=== PATIENT | female | born 1960 | race African-American/Black ===

== ENCOUNTER 2016-11-15 07:20 | Emergency (ER) | payer OTHER ==
[~2016-11-15] VITALS: Ht 162.6 cm; Wt 97.0 kg
[~2016-11-15 07:20] MED LIST: ALBU6.7H INH; BIOT1SUB SL; CLIN1CAP5 PO; FLUT1SPR9 EACH NARE; METF500T PO; METO25TA3 PO
[2016-11-15 07:22] VITALS: BP 192/91; PULSE 78; RESP 15; TEMP 98.1; O2SAT 99
[2016-11-15 07:29] VITALS: BP 151/65; PULSE 78
--- NOTE | 2016-11-15 08:02 | PD ---
HPI Chief Complaint: Pain: Acute or Chronic Time Seen by Provider: 08:02 Travel History International Travel<30 days: No Contact w/Intl Traveler<30days: No Traveled to known affect area: No History of Present Illness HPI 56-year-old female presents to the emergency Department with complaint of left knee pain times one week. Slipped and fell this morning with worsening of left knee pain. Did not fall on her knee. Fell on her butt. Denies hitting her head or loss of consciousness. Denies anticoagulants. History of left knee pain 3 months and is followed up with Dr. Cochran with x-rays that showed "bone- on-bone." She's been recommended to have a total knee replacement by Dr. Cochran. Took Tylenol prior to arrival to the ER. Pain is worse with palpation and ambulation. Pain decreased while at rest. Denies fever, chills, nausea, vomiting. Allergies SIDNEY inhibitor, Cipro, Demerol, lisinopril, NSAIDs. Has a primary care provider. No other modifying factors or associated signs and symptoms. PFSH Past Medical History Arthritis: Yes Asthma: Yes Blood Disorders: No Heart Rhythm Problems: No Cancer: No Cardiovascular Problems: Yes (HYPERTENSION) High Cholesterol: No Chest Pain: Yes Congestive Heart Failure: No COPD: No Cerebrovascular Accident: No Diabetes: Yes Diminished Hearing: No Endocrine: No Gastrointestinal Disorders: Yes GERD: Yes Glaucoma: No Genitourinary: No Headaches: Yes Hepatitis: No Hiatal Hernia: No Hypertension: Yes Immune Disorder: No Kidney Stones: No Musculoskeletal: Yes (CARPAL TUNNEL REPAIR ON RIGHT WRIST 1 YEAR AGO) Neurologic: No Psychiatric: No Reproductive: No Respiratory: Yes (asthma) Migraines: Yes Myocardial Infarction: No Pneumonia: Yes Renal Failure: No Seizures: No Sleep Apnea: Yes (uses c-pap) Thyroid Disease: No Ulcer: No ?: Not : 3 Para: 2 Miscarriage: 1 Past Surgical History Abdominal Surgery: Yes (BARIATRIC, HERNIA REPAIR) AICD: No Cardiac Surgery: Yes (ablation) Section: Yes (X 2) Ear Surgery: No Endocrine Surgery: No Eye Surgery: No Genitourinary Surgery: No Gynecologic Surgery: Yes (hysterectomy total 2004, C SECTION X 2) Hysterectomy: Yes Oral Surgery: No Pacemaker: No Thoracic Surgery: No Other Surgery: Yes (CARPAL TUNNEL) Social History Alcohol Use: No Tobacco Use: No Substance Use: No Allergies-Medications (Allergen,Severity, Reaction): Coded Allergies: SIDNEY Inhibitors (Verified Allergy, Severe, COUGHING, 11/15/16) Cipro (Verified Allergy, Severe, Swelling, 11/15/16) Demerol (Verified Allergy, Severe, 11/15/16) Lisinopril (Verified Allergy, Severe, COUGHING, 11/15/16) Nonsteroidal Anti-Inflammatory Agts (Verified Allergy, Severe, 11/15/16) Reported Meds & Prescriptions Reported Meds & Active Scripts Active Reported Metformin (Metformin HCl) 500 Mg Tab 500 Mg PO DAILY With a meal Flonase Allergy Relief Children Nasal [place] (Fluticasone Nasal [place]) 50 Mcg/ Act [place] 2 [place] EACH NARE DAILY 50 mcg/spray Metoprolol Tartrate 25 Mg Tab 25 Mg PO BID Biotin 5,000 Mcg Subl 1,000 Mcg SL Proventil Hfa 6.7 GM Inh (Albuterol Sulfate) 90 Mcg/Act Aer 2 Puff INH Q4-6H PRN Review of Systems Except as stated in HPI: all other systems reviewed are Neg Physical Exam Narrative GENERAL: Well-nourished, well-developed female patient, in no acute distress SKIN: Warm and dry. HEAD: Atraumatic. Normocephalic. EYES: Pupils equal and round. No scleral icterus. No injection or drainage. ENT: Mucosa pink and moist. Airway patent. NECK: Trachea midline. CARDIOVASCULAR: Regular rate. RESPIRATORY: No accessory muscle use. GASTROINTESTINAL: Rounded. MUSCULOSKELETAL: Left knee is nonedematous and nonerythematous; with full range of motion with flexion to 90; joint stable with negative drawer test; no obvious deformity; point tenderness on palpation to the lateral and medial aspects. Left lower extremity supple and non-tense with 2+ radial pulse and sensory intact and without erythema or edema. No cyanosis. No obvious deformities. No edema. NEUROLOGICAL: Awake and alert. Oriented 3. No obvious cranial nerve deficits. Motor grossly within normal limits. Normal speech. PSYCHIATRIC: Appropriate mood and affect; insight and judgment normal. Data Data Last Documented VS Vital Signs Date Time Temp Pulse Resp B/P Pulse Ox O2 Delivery O2 Flow Rate FiO2 11/15/16 07:29 78 151/65 11/15/16 07:22 98.1 15 99 Orders Crutches (11/15/16 08:02) Splint Or Brace Apply/Monitor (11/15/16 08:02) [facility] Medical Decision Making Medical Screen Exam Complete: Yes Emergency Medical Condition: Yes Medical Record Reviewed: Yes Differential Diagnosis Knee sprain, chronic knee pain, arthritis Narrative Course 56-year-old female with chronic left knee pain with exacerbation times one week and increased pain after a mechanical slip and fall this morning. She denies hitting her head or loss of consciousness. Denies anticoagulants. Sees Dr. Cochran, orthopedic. I do not suspect fracture or dislocation until imaging is necessary at this time. Patient took Tylenol prior to arrival. Allergies to NSAIDs. Sidney bandage and crutches provided for support. Instructed patient to take Tylenol instructed numbness needed for pain. Instructed patient to follow up with Dr. Cochran. Patient is medically cleared and stable for discharge. Discussed reasons to return to the emergency department. Instructed patient to follow up with primary care provider. Patient agrees with treatment plan. The patients vital signs are stable and the patient is stable for outpatient follow- up and treatment. Patient discharged home, stable and in no acute distress. Diagnosis Primary Impression: Left knee pain Qualified Code: M25.562 - Left knee pain, unspecified chronicity Referrals: Orthopaedic Surgeon Primary Care Physician Patient Instructions: General Instructions, Knee Pain (ED) Departure Forms: Tests/Procedures, Work Release Enter return to work date: Nov 19, 2016 Additional Instructions: Tylenol as needed and as directed to reduce pain and inflammation Rest, ice, compress, and elevate extremity to decrease pain and inflammation Knee Brace for support Crutches for support Avoid aggravating activity; increase activity as tolerated Follow-up with primary care provider Return to the emergency department immediately with worsening symptoms Med/Other Pt SpecificInfo: Prescription(s) given Disposition: 01 DISCHARGE HOME Condition: Stable Ramonita Torres Nov 15, 2016 08:02
[2016-11-16] MEDS ORDERED: TRAM50TA PO (09:05)
[2016-11-16] MEDS ORDERED: ZOFR4TAB3 SL (09:33)
== END 2016-11-15 08:34 | disposition home or self-care (01) ==
LOC: NEPB 07:20
DX: M25.562 Pain in left knee (principal); I10 Essential (primary) hypertension; J45.909 Unspecified asthma, uncomplicated; E11.9 Type 2 diabetes mellitus without complications; Z79.4 Long term (current) use of insulin; W01.0XXA Fall on same level from slipping, tripping and stumbling without subsequent striking against object, initial encounter; Y93.89 Activity, other specified; Y99.9 Unspecified external cause status
CPT/HCPCS: 99283; E0113

== ENCOUNTER 2016-11-16 08:52 | Emergency (ER) | payer OTHER ==
[~2016-11-16] VITALS: Ht 165.1 cm; Wt 95.0 kg
[~2016-11-16 08:52] MED LIST changes: -CLIN1CAP5 PO
[2016-11-16 08:57] VITALS: BP 133/108; PULSE 65; RESP 18; TEMP 98.7; O2SAT 98
--- NOTE | 2016-11-16 09:00 | PD ---
HPI . Nausea and vomiting 3 episodes this morning Chief Complaint: GI Complaint Time Seen by Provider: 08:53 Travel History International Travel<30 days: No Contact w/Intl Traveler<30days: No Traveled to known affect area: No History of Present Illness HPI 56-year-old female with history of hypertension, diabetes, bariatric surgery 2008, osteoarthritis, hysterectomy, hernia repair and chronic left knee pain here with complaints of nausea and vomiting 3 episodes this morning. Patient decided to call fire rescue and was given 4 mg of Zofran in route. She is now here in the emergency department and has no specific complaints. She tells me her nausea has subsided. She denies any abdominal pain. She says the only time she is experiencing abdominal pain is when she is actually vomiting and feels the retching in her abdomen. She denies any fever or chills. She denies any chest pain, shortness of breath or other associated symptoms. She was seen in the emergency department yesterday for left knee pain, which she is following with orthopedics tomorrow for arthrocentesis. She did take tramadol yesterday for the first time. PFSH Past Medical History Arthritis: Yes Asthma: Yes Blood Disorders: No Heart Rhythm Problems: No Cancer: No Cardiovascular Problems: Yes (HYPERTENSION) High Cholesterol: No Chest Pain: Yes Congestive Heart Failure: No COPD: No Cerebrovascular Accident: No Diabetes: Yes Diminished Hearing: No Endocrine: No Gastrointestinal Disorders: Yes GERD: Yes Glaucoma: No Genitourinary: No Headaches: Yes Hepatitis: No Hiatal Hernia: No Hypertension: Yes Immune Disorder: No Kidney Stones: No Musculoskeletal: Yes (CARPAL TUNNEL REPAIR ON RIGHT WRIST 1 YEAR AGO) Neurologic: No Psychiatric: No Reproductive: No Respiratory: Yes (asthma) Migraines: Yes Myocardial Infarction: No Pneumonia: Yes Renal Failure: No Seizures: No Sleep Apnea: Yes (uses c-pap) Thyroid Disease: No Ulcer: No : 3 Para: 2 Miscarriage: 1 Past Surgical History Abdominal Surgery: Yes (BARIATRIC, HERNIA REPAIR) AICD: No Cardiac Surgery: Yes (ablation) Section: Yes (X 2) Ear Surgery: No Endocrine Surgery: No Eye Surgery: No Genitourinary Surgery: No Gynecologic Surgery: Yes (hysterectomy total 2003, C SECTION X 2) Hysterectomy: Yes Oral Surgery: No Pacemaker: No Thoracic Surgery: No Other Surgery: Yes (CARPAL TUNNEL) Social History Alcohol Use: No Tobacco Use: No Substance Use: No Allergies-Medications (Allergen,Severity, Reaction): Coded Allergies: WALKER Inhibitors (Verified Allergy, Severe, COUGHING, 11/16/16) Cipro (Verified Allergy, Severe, Swelling, 11/16/16) Demerol (Verified Allergy, Severe, 11/16/16) Lisinopril (Verified Allergy, Severe, COUGHING, 11/16/16) Nonsteroidal Anti-Inflammatory Agts (Verified Allergy, Severe, Swelling, ) Reported Meds & Prescriptions Reported Meds & Active Scripts Active Zofran Odt (Ondansetron Odt) 4 Mg Tab 4 Mg SL Q12HR PRN Reported Tramadol (Tramadol HCl) 50 Mg Tab 50 Mg PO BID PRN Metformin (Metformin HCl) 500 Mg Tab 500 Mg PO DAILY With a meal Flonase Allergy Relief Children Nasal [place] (Fluticasone Nasal [place]) 50 Mcg/ Act [place] 2 [place] EACH NARE DAILY 50 mcg/spray Metoprolol Tartrate 25 Mg Tab 25 Mg PO BID Biotin 5,000 Mcg Subl 1,000 Mcg SL Proventil Hfa 6.7 GM Inh (Albuterol Sulfate) 90 Mcg/Act Aer 2 Puff INH Q4-6H PRN Review of Systems General / Constitutional: No: Fever Eyes: No: Visual changes HENT: No: Headaches Cardiovascular: No: Chest Pain or Discomfort Respiratory: No: Shortness of Breath Gastrointestinal: Positive: Nausea, Vomiting, No: Abdominal Pain Genitourinary: No: Dysuria Musculoskeletal: No: Pain Skin: No Rash Neurologic: No: Weakness Psychiatric: No: Depression Endocrine: No: Polydipsia Hematologic/Lymphatic: No: Easy Bruising Physical Exam Narrative GENERAL: AAO x 3, no acute distress, Well-nourished, well-developed patient. Resting comfortably in bed SKIN: Warm and dry. No visible rashes or bruising. HEAD: Normocephalic and atraumatic. EYES: No scleral icterus. No injection or drainage. ENT: No nasal drainage noted. Mucous membranes pink. Airway patent. NECK: Supple, trachea midline. No JVD. CARDIOVASCULAR: Regular rate and rhythm without murmurs, gallops, or rubs. RESPIRATORY: Breath sounds equal bilaterally. No accessory muscle use. No rhonchi or rales. GASTROINTESTINAL: Abdomen soft, non-tender, nondistended. EXTREMITIES: No cyanosis. Left knee with some edema BACK: Nontender without obvious deformity. No CVA tenderness. PSYCH: AAO x 3, normal affect. Data Data Last Documented VS Vital Signs Date Time Temp Pulse Resp B/P Pulse Ox O2 Delivery O2 Flow Rate FiO2 11/16/16 09:05 16 11/16/16 08:57 98.7 65 133/108 98 Orders Influenzae A/B Antigen (11/16/16 09:02) [facility] Medical Decision Making Medical Screen Exam Complete: Yes Emergency Medical Condition: Yes Medical Record Reviewed: Yes Differential Diagnosis viral gastroenteritis, reaction to tramadol, less likely appendicitis Narrative Course 56-year-old female with history of hypertension, diabetes, bariatric surgery 2009, osteoarthritis, hysterectomy, hernia repair and chronic left knee pain here with complaints of nausea and vomiting 3 episodes this morning. Patient decided to call fire rescue and was given 4 mg of Zofran in route. She is now here in the emergency department and has no specific complaints. She tells me her nausea has subsided. She denies any abdominal pain. She says the only time she is experiencing abdominal pain is when she is actually vomiting and feels the retching in her abdomen. She denies any fever or chills. She denies any chest pain, shortness of breath or other associated symptoms. She was seen in the emergency department yesterday for left knee pain, which she is following with orthopedics tomorrow for arthrocentesis. She did take tramadol yesterday for the first time. Patient seen and examined. Case discussed with Dr. Mendez. Recommend influenza swab, although this is unlikely. Most likely patient had nausea and vomiting due to taking tramadol. Influenza is negative, she will be discharged home. Discussed negative influenza with patient. Patient verbalized understanding of instructions, questions were answered, and thanked me for their care. I advised them if their condition worsens, please return to the nearest emergency room for further care. Diagnosis Primary Impression: Drug side effects Qualified Code: T88.7XXA - Drug side effects, initial encounter Additional Impression: Gastroenteritis Patient Instructions: General Instructions Additional Instructions: Please return to emergency department if your symptoms return or worsen. Follow up with your primary care provider. Take medications as prescribed. More than likely the tramadol may have caused his nausea and vomiting. This is one of the side effects associated with this drug. We have provided you with Zofran as needed for nausea. Your blood pressure was slightly elevated. Please have that followed up with your primary care provider. Med/Other Pt SpecificInfo: Prescription(s) given Scripts Ondansetron Odt (Zofran Odt)4 Mg Tab4 Mg SL Q12HR PRN (Nausea/Vomiting) #20 TAB Ref 0 Prov:Rivera Mendez MD 11/16/16 Disposition: 01 DISCHARGE HOME Condition: Stable Angella Sheridan Nov 16, 2016 09:00
[2016-11-16] MEDS ORDERED: TRAM50TA PO (09:05)
--- NOTE | 2016-11-16 09:24 | PD ---
Data Data Last Documented VS Vital Signs Date Time Temp Pulse Resp B/P Pulse Ox O2 Delivery O2 Flow Rate FiO2 11/16/16 09:05 16 11/16/16 08:57 98.7 65 133/108 98 Orders Influenzae A/B Antigen (11/16/16 09:02) [facility] Supervised Visit with BENJA: Yes Narrative Course The history, exam, and medical decision-making in the associated mid-level provider note were completed with my assistance. I reviewed and agree with the findings presented. I attest that I had a [id number] encounter with the patient on the same day, and personally performed and documented my assessment and findings in the medical record. *My assessment and Findings: The 56 year-old woman presents emergent department with nausea and vomiting starting today. No abdominal pain. No fevers or chills. No loose stools. No sick contacts. Did take tramadol for the first time last night for her knee pain. She looks well. She is a history of Brianne-en-Y gastric bypass bariatric surgery. She has a benign abdominal exam. No evidence of hepatobiliary disease. Negative Baldwin's. Recommend supportive treatment. Defer further testing. Rivera Mendez MD Nov 16, 2016 09:24
[2016-11-16] MEDS ORDERED: ZOFR4TAB3 SL (09:33)
== END 2016-11-16 11:09 | disposition home or self-care (01) ==
LOC: NEPC 08:52
DX: T88.7XXA Unspecified adverse effect of drug or medicament, initial encounter (principal); K52.9 Noninfective gastroenteritis and colitis, unspecified; G89.29 Other chronic pain; I10 Essential (primary) hypertension; E11.9 Type 2 diabetes mellitus without complications; M25.562 Pain in left knee; J45.909 Unspecified asthma, uncomplicated; X58.XXXA Exposure to other specified factors, initial encounter
CPT/HCPCS: 87804; 99283

== ENCOUNTER → 2017-08-19 | Outpatient (CLI) | payer OTHER ==
[~2017-08-19] VITALS: Ht 165.1 cm; Wt 96.0 kg
[~2017-08-19] MED LIST changes: +BIOT10TA PO; -BIOT1SUB SL; +CHLORHEXIDINE GLUCONATE 2 % 1 PACK (2 CLOTHS) TOPICAL PRN; +DAILTAB38 PO; +DEXTROSE 5%-LACTATED RING INJ 1,000 ML IV SCH; +FLUT1INH INH; +GLUC15009 PO; +LACTATED RINGER'S 1000 ML IV PRN; +LIDOCAINE HCL 1% PF 5 ML SYRINGE OTHER ONE; +METOPROLOL TARTRATE 25 MG TAB PO PRN; +MONT4CHW2 CHEW; +POVIDONE IODINE 5% (ANTISEPSIS KIT) 4 APPLICATIONS EACH NARE PRN; +PROPOFOL 200 MG/20 ML AMP IV ONE; +SODIUM CHLORID 0.9% 500 ML IV PRN
--- NOTE | 2017-08-19 10:39 | GIPROC ---
[facility] [address] [facility]. [facility] [place], [address] EGD PROCEDURE REPORT EXAM DATE: 08/19/2017 PATIENT NAME: Mónica Gomez MR #: [id number] BIRTHDATE: 1960 ATTENDING: Alexa Martinez MD ORDER #: [id number] COMMUNICATIONS PROGRAM MANAGER: Chavez Quinn and Beryl Recio STATUS: outpatient INDICATIONS: The patient is a 57 yr old female here for an EGD due to anemia PROCEDURE PERFORMED: EGD w/ biopsy MEDICATIONS: None and Per Anesthesia. TOPICAL ANESTHETIC: none CONSENT: The patient understands the risks and benefits of the procedure and understands that these risks include, but are not limited to: sedation, allergic reaction, infection, perforation and/or bleeding. Alternative means of evaluation and treatment include, among others: physical exam, x-rays, and/or surgical intervention. The patient elects to proceed with this endoscopic procedure. medical equipment was checked for proper function. Hand hygiene and appropriate measures for infection prevention was taken. After the risks, benefits and alternatives of the procedure were thoroughly explained, Informed consent was verified, confirmed and timeout was successfully executed by the treatment team. The patient was anesthetized with topical anesthesia and the EC-[id number] (Pedi C) endoscope was introduced through the mouth and advanced to the second portion of the duodenum. Retroflexed views revealed a hiatal hernia The gastroscope was then slowly withdrawn and removed. Gastritis body-biopsy jejunum -biopsy esophagitis -distal esophagus/Schatzki's ring -biopsy. ADVERSE EVENTS: There were no complications. IMPRESSIONS: 1. Gastritis antrum-biopsy 2. Retroflexed views revealed a hiatal hernia RECOMMENDATIONS: 1. Await biopsy results. Biopsy results will not be ready for 7-10 days. If you don't hear from us in two weeks, call our office for biopsy results. 2. Anti-reflux regimen 3. Avoid NSAIDS PATIENT CONDITION: stable DISPOSITION: Home REPEAT EXAM: Return 3 years EGD Alexa Martinez MD eSigned: Alexa Martinez MD 08/19/2017 10:39 AM cc: Darrel Fletcher DOCUMENT ADDENDUM eSigned: Alexa Martinez MD 08/19/2017 11:04 AM Reason for addendum: [ ] Correction of inaccurate information [ ] Recently acquired lab/pathology results [x] Additional information Comments: s/p gastric bypass surgery - PATIENT NAME: Mónica Gomez MR#: [id number]
--- NOTE | 2017-08-19 10:42 | GIPROC ---
[facility] [address] [facility]. [facility], [address] COLONOSCOPY PROCEDURE REPORT EXAM DATE: 08/19/2017 PATIENT NAME: Mónica Gomez MR #: [id number] BIRTHDATE: 1960 ENDOSCOPIST: Alexa Martinez MD ORDER #: [id number] LEGAL EXECUTIVE: Chavez Quinn and Beryl Recio STATUS: outpatient INDICATIONS: The patient is a 57 yr old female here for a colonoscopy due to anemia, family history of colon cancer and rectal cancer PROCEDURE PERFORMED: Colonoscopy, screening MEDICATIONS: None and Per Anesthesia. PREP QUALITY: fair PREP TYPE:Other: ESTIMATED BLOOD LOSS: None CONSENT: The patient understands the risks and benefits of the procedure and understands that these risks include, but are not limited to: sedation, allergic reaction, infection, perforation and/or bleeding. Alternative means of evaluation and treatment include, among others: physical exam, x-rays, and/or surgical intervention. The patient elects to proceed with this endoscopic procedure. medical equipment was checked for proper function. Hand hygiene and appropriate measures for infection prevention was taken. After the risks, benefits and alternatives of the procedure were thoroughly explained, Informed consent was verified, confirmed and timeout was successfully executed by the treatment team. A digital exam revealed external hemorrhoids The Pentax EC-[id number] endoscope was introduced through the anus and advanced to the cecum, which was identified by both the appendix and ileocecal valve. The instrument was then slowly withdrawn as the colon was fully examined. COLON FINDINGS: Diverticulosis sigmoid,descending. Retroflexed views revealed internal hemorrhoids and Retroflexed views revealed small internal hemorrhoids The scope was then completely withdrawn from the patient and the procedure terminated. PROCEDURE WITHDRAWAL TIME:6minutes ADVERSE EVENTS: There were no complications. IMPRESSIONS: 1. Diverticulosis sigmoid,descending 2. Retroflexed views revealed internal hemorrhoids 3. Retroflexed views revealed small internal hemorrhoids 4. Revealed external hemorrhoids RECOMMENDATIONS: 1. Await biopsy results. Biopsy results will not be ready for 7-10 days. If you don't hear from us in two weeks, call our office for results. 2. Avoid NSAIDS and Aspirin 3. Probiotics from any [facility] or [employer] store RECALL: Return 5 years Colonoscopy Alexa Martinez MD eSigned: Alexa Martinez MD 08/19/2017 10:41 AM cc: Darrel Fletcher PATIENT NAME: JasonMónica MR#: [id number]
[2017-08-19 11:03] VITALS: BP 155/78; PULSE 66; RESP 18; TEMP 97.6; O2SAT 98
--- NOTE | 2017-08-19 16:55 | EKG ---
Date Performed: 08/19/2017 Time Performed: 08:25:02 PTAGE: 57 years EKG: SINUS BRADYCARDIA WITH FIRST DEGREE AV BLOCK MINIMAL VOLTAGE CRITERIA FOR LVH, CONSIDER NOR MAL VARIANT NONSPECIFIC T-WAVE ABNORMALITY Since previous tracing, no significant change noted ABNORM AL ECG PREVIOUS TRACING : 10/28/2015 06.44 DOCTOR: Na Rivera Interpretating Date/Time 08/19/2017 16:54:37
== END ==
LOC: HSDC 07:49
PROVIDERS: ATTEND Internal Medicine Gastroenterology
DX: K29.50 Unspecified chronic gastritis without bleeding (principal); K44.9 Diaphragmatic hernia without obstruction or gangrene; Z80.0 Family history of malignant neoplasm of digestive organs; K64.0 First degree hemorrhoids; K57.30 Diverticulosis of large intestine without perforation or abscess without bleeding; D64.9 Anemia, unspecified; I10 Essential (primary) hypertension; I44.0 Atrioventricular block, first degree
CPT/HCPCS: 00740; 43239; 45378; 88305; 88312; 93005; J7120